=== PATIENT | female | born 1960 | race Caucasian/White ===

== ENCOUNTER → 2023-12-10 08:04 | Outpatient (REF) | payer OTHER, SELFPAY | LOC: HWWDC 08:04 | PROVIDERS: ATTENDING PHYSICIAN Family Medicine | DX: Z12.31 Encounter for screening mammogram for malignant neoplasm of breast (principal) | CPT/HCPCS: 77063; 77067 ==

== ENCOUNTER → 2024-01-07 10:49 | Outpatient (REF) | payer OTHER, SELFPAY | LOC: RAD 10:49 | PROVIDERS: ATTENDING PHYSICIAN Nurse Practitioner; FAMILY PHYSICIAN Family Medicine | DX: N39.46 Mixed incontinence (principal) | CPT/HCPCS: 76770; 76856 ==

== ENCOUNTER → 2025-04-18 13:25 | Outpatient (REF) | payer OTHER, SELFPAY | LOC: WDC 13:25 | PROVIDERS: ATTENDING PHYSICIAN Family Medicine | DX: Z12.39 Encounter for other screening for malignant neoplasm of breast (principal); Z13.820 Encounter for screening for osteoporosis; Z12.31 Encounter for screening mammogram for malignant neoplasm of breast | CPT/HCPCS: 77063; 77067; 77080 ==

== ENCOUNTER 2025-05-27 06:21 | Day surgery (SDC) | payer OTHER, SELFPAY | END 2025-05-27 10:10 | disposition home or self-care (01) | LOC: GI 06:21 | PROVIDERS: ATTENDING PHYSICIAN Internal Medicine Gastroenterology; FAMILY PHYSICIAN Family Medicine | DX: Z12.11 Encounter for screening for malignant neoplasm of colon (principal); D12.2 Benign neoplasm of ascending colon; K57.30 Diverticulosis of large intestine without perforation or abscess without bleeding; K62.1 Rectal polyp; K64.8 Other hemorrhoids | CPT/HCPCS: 45385; 45380; 88305 ==

== ENCOUNTER → 2025-07-20 07:51 | Outpatient (REF) | payer OTHER, SELFPAY | LOC: HWRAD 07:51 | PROVIDERS: ATTENDING PHYSICIAN Student in an Organized Health Care Education/Training Program; FAMILY PHYSICIAN Family Medicine | DX: N20.0 Calculus of kidney (principal) | CPT/HCPCS: 74176 ==